=== PATIENT | female | born 1930 | race Caucasian/White ===

== ENCOUNTER 2017-01-03 18:18 | Emergency (ER) | payer MEDICARE ==
--- NOTE | 2017-01-13 10:06 | ER ---
ADMIT: 01/03/2017 RM/LOC: ER [facility] MR#: [id number] [address] [id number] MAXIMILIANO ARAGON [address] [address] Emergency Room Report SEX: F AGE: 86 : 1930 DATE: 01/03/2017 ADDENDUM: CHIEF COMPLAINT: Urinary frequency. HISTORY OF PRESENT ILLNESS: This 86-year-old has chronic urinary tract infection. She just finished amoxicillin at the end of December. says she has been just more sleepy the last couple days and has been complaining of urinary frequency. A urine was collected. She does have a urinary tract infection with 3+ leukocyte esterase, 299 white blood cells, many white blood cell clumps and 102 red blood cells in her urine. CBC was normal except for white count of 10.0. BMP is normal except for glucose 102 and GFR of 68. I am sending her home with Macrobid 100 mg 1 tab b.i.d. x7 days. Having her push fluids and follow up if worsen. CLINICAL IMPRESSION: Urinary tract infection. ARIAN Brady / Aron Du MD / jeanie JOB #: [id number] CC: Sebastian Galeas MD, Attending Physician Brown Arriola MD, Family Physician
== END 2017-01-03 20:22 | disposition home or self-care (01) ==
LOC: ER 18:18
DX: N39.0 Urinary tract infection, site not specified (principal); I10 Essential (primary) hypertension; F03.90 Unspecified dementia, unspecified severity, without behavioral disturbance, psychotic disturbance, mood disturbance, and anxiety; Z79.899 Other long term (current) drug therapy; Z79.82 Long term (current) use of aspirin

== ENCOUNTER → 2017-02-08 | Outpatient (CLI) | payer MEDICARE | END | disposition home or self-care (01) | LOC: RAD.S 14:30 | DX: R51 Headache (principal); G31.9 Degenerative disease of nervous system, unspecified; G93.89 Other specified disorders of brain; W19.XXXA Unspecified fall, initial encounter ==